=== PATIENT | female | born 1960 | race African-American/Black ===

== ENCOUNTER 2018-10-08 02:48 | Emergency (ER) | payer OTHER ==
[~2018-10-08] VITALS: Ht 172.7 cm; Wt 86.4 kg
[2018-10-08 02:51] VITALS: BP 162/72; TEMP 97.5
[2018-10-08] MEDS ORDERED: COZAAR 25MG25 MG/TAB PO (03:08)
[2018-10-08] MEDS ORDERED: ALLEGRA 60MG TA60 MG PO (03:08)
[2018-10-08] MEDS ORDERED: LOESTRIN 1/20 21DAY PO (03:09)
[2018-10-08 04:10] VITALS: PULSE 62
== END 2018-10-08 04:16 | disposition home or self-care (01) ==
LOC: COL.ER 02:48
DX: T16.2XXA Foreign body in left ear, initial encounter (principal)